=== PATIENT | female | born 1990 | race Two or more races ===

== ENCOUNTER 2024-09-25 19:37 | Emergency (ER) | payer MEDICAID, SELFPAY ==
[2024-09-25 19:48] VITALS: BP 123/82; PULSE 82; RESP 18; TEMP 36.7; O2SAT 98
--- NOTE | 2024-09-25 19:51 | PD.EDRME ---
Rapid Medical Screening Exam RME Arrival date/time: 09/25/24 19:37 34 year old female present to ED for c/o of vag bleeding/clots for 3 days, + I have greeted and performed a focused initial assessment of this patient. A comprehensive ED assessment and evaluation of the patient, analysis of all test results, and completion of the medical decision making process will be conducted by additional ED providers. Chief Complaint: Vaginal Bleeding Time Seen by Provider: 09/25/24 19:46 Vital signs: Vital Signs Temperature 98.1 F 09/25/24 19:48 Pulse Rate 82 09/25/24 19:48 Respiratory Rate 18 09/25/24 19:48 Blood Pressure 123/82 09/25/24 19:48 Pulse Oximetry (%) 98 09/25/24 19:48 Oxygen Delivery Method Room Air 09/25/24 19:48
--- NOTE | 2024-09-25 19:59 | EDNOTE_ITS ---
ED OB Contraction Preg RMI/HPI General Chief complaint: Vaginal Bleeding Stated complaint: miscarage Time Seen by Provider: 09/25/24 19:46 Arrival date/time: 09/25/24 19:37 RME / HPI RME / HPI Narrative: 09/25/24 19:37 34 year old female present to ED for c/o of vag bleeding/clots for 3 days, + I have greeted and performed a focused initial assessment of this patient. A comprehensive ED assessment and evaluation of the patient, analysis of all test results, and completion of the medical decision making process will be conducted by additional ED providers. Dr. Ortiz HPI: 34-year-old female presenting to the emergency department with 3 days history of clot. The patient was seen initially on August 28 and at that time the patient had 6-week IUP . Related Data Home Medications ?Medication ?Instructions ?Recorded ?Confirmed vit no.95-ferrous 1 tab PO DAILY 10/17/2107/20 fumarate 28 mg-folic acid 800 mcg tablet () docusate sodium 100 mg capsule 100 mg PO BID 10/27/21 10/27/21 (Colace) ferrous sulfate 325 mg (65 mg 325 mg PO BID 10/27/21 0 10/27/21 iron) tablet (FeroSul) Previous Rx's ?Medication ?Instructions ?Recorded docusate sodium 100 mg capsule 100 mg PO BID #60 caps 10/28/21 (Colace) ibuprofen 600 mg tablet 600 mg PO Q6H PRN pain #90 t abs 10/28/21 lanolin 50 % topical ointment 1 applic topical TID PRN skin 10/28/21 irritation #15 tubes Allergies Allergy/AdvReac Type Severity Reaction Status Date / Time No Known Allergies Allergy Verified 09/25/24 19:39 Past Medical History Past Medical History NEUROLOGIC: Negative Neurological Disorders or Seizures CARDIAC: Negative Cardiac Disorders or Congestive Heart Failure RESPIRATORY: Positive Asthma; Negative Chronic Obstructive Pulmonary Disease (COPD) GASTROINTESTINAL: Negative Gastrointestinal Disorders GENITOURINARY: Negative Genitourinary Disorders or Renal Disease REPRODUCTIVE: Positive Previous Pregnancies; Negative Endometriosis, Genital Herpes, Gonorrhea, Pelvic Inflammatory Disease, Syphilis or Uterine Prolapse MUSCULOSKELETAL: Negative Musculoskeletal Disorders ENDOCRINE: Negative Endocrine Disorders, Diabetes Mellitus Type 1 or Diabetes Mellitus Type 2 HEMATOLOGIC: Positive Blood Disorders and Anemia OTHER HISTORY: Positive Hospitalization, Blood Transfusions and Chicken Pox; Negative Autoimmune Disease, Falls, Blood Transfusion Reaction, Anesthesia Reactions, Human Immunodeficiency Virus (HIV), Measles, Mumps, Rubella ([place] Measles), Pertussis, Clostridium Difficile or Cancer Family History FAMILY HISTORY: Negative Family Psychiatric Problems, Family Respiratory Disorders, Family Cardiac Disorders, Family Gastrointestinal Problems, Family Cancer, Family Surgery or Family Anesthesia Reaction Surgical History SURGICAL: Positive Gastric Bypass Surgery; Negative Section Social History SMOKING STATUS: Never smoker ED Exam Narrative Physical exam: Ambulated from the ED to room 6. Course Course Course Narrative: 2030: Patient placed in room 6. Quality Measures none Orders Category Date Time Status US OB transvaginal Stat Exams 09/25/24 21:33 Completed ABO/RH Type Stat Lab 09/25/24 20:05 Completed Beta HCG,Quantitative Stat Lab 09/25/24 19:56 Completed CBC Stat Lab 09/25/24 19:56 Completed CMP [Comprehensive Metabolic Panel] Stat Lab 09/25/24 19:56 Completed UA [Urinalysis] Stat Lab 09/25/24 20:21 Completed Vital Signs Vital signs: Vital Signs Temperature 98.1 F 09/25/24 19:48 Pulse Rate 82 09/25/24 19:48 Respiratory Rate 18 09/25/24 19:48 Blood Pressure 123/82 09/25/24 19:48 Pulse Oximetry (%) 98 09/25/24 19:48 Oxygen Delivery Method Room Air 09/25/24 19:48 Vaginal Bleeding Patient data External records reviewed:: [facility] previous records and Other (specify) (Seen on August 28 in the emergency department positive hCG) Clinical information provided by:: patient Social determinants that could affect healthcare access:: none Patient has the following chronic illnesses:: None How is presenting disease/condition affected by chronic disease/condition?: no chronic disease Evaluation data The following diagnostics were reviewed and interpreted by me:: lab results and radiology exam(s) Lab and/or radiology exams considered but not ordered:: None Interpretation Summary: Threatened miscarriage dysfunctional uterine bleeding Medications / Prescriptions Medications or Prescriptions considered but not ordered:: None Medication administrations:: None Consultations Consultation(s) initiated? (list below): No Consultation #1 (Physician, Specialty, Details): None Diagnosis Vaginal Bleeding Differential Diagnosis: missed , threatened , dysfunctional uterine bleeding, menometrorrhagia, incomplete and vaginal bleeding Most likely diagnosis given after review of the tests above:: Threatened miscarriage dysfunctional uterine bleeding Admission Indicated Admission indicated?: not indicated Admission Request Was there a request for admission?: No Disposition Plan Disposition Plan: Discharge Discharge Attestation Discharge Attestation: The patient and all family members were given an opportunity to ask questions and understood the discharge instructions. Discharge instructions specifically effects, indications for sooner follow up or return to the emergency department, and the expected course of current diagnosis. Patient condition: Stable Discharge Plan Plan Patient Disposition: HOME (Self Care) Patient condition on transfer: Stable Prescriptions/Referrals Prescriptions/Med Rec: No Action PNV cmb#95-ferrous fumarate-FA [] 28 mg iron- 800 mcg tablet 1 tab PO DAILY docusate sodium [Colace] 100 mg Capsule 100 mg PO BID ferrous sulfate [FeroSul] 325 mg (65 mg iron) tablet 325 mg PO BID Patient Comments: take 1 tablet by mouth once daily docusate sodium [Colace] 100 mg capsule 100 mg PO BID Qty: 60 0RF ibuprofen 600 mg tablet 600 mg PO Q6H PRN (Reason: pain) Qty: 90 0RF lanolin 50 % ointment 1 applic topical TID PRN (Reason: skin irritation) Qty: 15 0RF Referrals: Gianfranco Noel MD [Primary Care Provider] - 09/29/24 Problem List Clinical Impression: Dysfunctional uterine bleeding, Threatened Patient/Caregiver Discharge Instructions Education Materials: ED Possible Miscarriage ... Additional Instructions: Today your ultrasound shows that you have an intrauterine without heart tone or pole which could indicate an early versus miscarriage. Please take your medications as prescribed. Follow-up with your [facility] appointment on of this week as scheduled. If you cannot get into your [facility] you can return to emergency department for a repeat ultrasound and quant level. Today your quant level is 2100. Return sooner from your appointment if you are having bleeding with passing clots, cramping, or any other concerns. Print Language: Belarusian Stand Alone Forms: Sofi Award Info., Patient Portal Info Letter
[2024-09-25 20:02] LABS: Basophils % (Auto) 0 % (0-2.5); Eosinophils # (Auto) 0.2 Thou/mm3 (0.0-0.5); Eosinophils % (Auto) 3 % (0-10); Hematocrit 34.9 % (36.0-46.0); Hemoglobin 11.6 g/dL (12.0-16.0); Immature Granulocytes % (Auto) 0 % (0-0); Immature Granulocytes Auto 0.02 Thou/mm3 (0.00-0.00); Lymphocytes # (Auto) 3.3 Thou/mm3 (1.0-4.8); Lymphocytes % (Auto) 37 % (10-50); Mean Corpuscular HGB Conc 33.2 g/dl (31.0-37.0); Mean Corpuscular Hemoglobin 26.9 pg (25.0-35.0); Mean Corpuscular Volume 81 fL (80-100); Monocytes # (Auto) 0.8 Thou/mm3 (0.0-0.8); Monocytes % (Auto) 8 % (0-12); Neutrophils # (Auto) 4.7 Thou/mm3 (1.8-7.7); Neutrophils % (Auto) 52 % (37-80); Nucleated Red Blood Cell % 0 /100 WBC (0); Platelet Count 289 Thou/mm3 (140-440); RDW Standard Deviation 42.1 fL (36.4-46.3); Red Blood Count 4.31 Miln/mm3 (4.00-5.20)
[2024-09-25 20:25] LABS: Alanine Aminotransferase 13 U/L (10-49); Albumin, Serum 4.2 gm/dL (3.5-5.0); Albumin/Globulin Ratio 1.6 (1.2-2.2); Alkaline Phosphatase 88 U/L (46-116); Anion Gap 8 (7-16); Aspartate Amino Transferase 15 U/L (0-34); BUN/Creatinine Ratio 13 Ratio (12-20); Bilirubin,Total 0.3 mg/dL (0.3-1.2); Blood Urea Nitrogen 9 mg/dL (9-23); Calcium 9.7 mg/dL (8.3-10.6); Calcium (Corrected) 9.7 mg/dL (8.5-10.1); Carbon Dioxide 26.4 mMol/L (20.0-31.0); Chloride 109 mMol/L (98-107); Creatinine (Component) 0.7 mg/dL (0.6-1.3); Globulin 2.7 gm/dL (2.3-3.5); Glucose 108 mg/dL (74-106); Osmolality,Calculated 284 (275-295); Potassium 3.5 mMol/L (3.4-5.1); Sodium 143 mMol/L (136-145); Total Protein 6.9 gm/dL (5.7-8.2); eGFR > 60 See Note
--- NOTE | 2024-09-25 20:25 | PD.EDRME ---
Rapid Medical Screening Exam RME Arrival date/time: 09/25/24 19:37 09/25/24 19:37 34 year old female present to ED for c/o of vag bleeding/clots for 3 days, + I have greeted and performed a focused initial assessment of this patient. A comprehensive ED assessment and evaluation of the patient, analysis of all test results, and completion of the medical decision making process will be conducted by additional ED providers. Dr. Ortiz HPI: 34-year-old female presenting to the emergency department with 3 days history of clot. The patient was seen initially on August 28 and at that time the patient had 6-week IUP . Patient denying chest pain, shortness of breath, abdominal pain, Chief Complaint: Vaginal Bleeding Time Seen by Provider: 09/25/24 19:46 Vital signs: Vital Signs Temperature 98.1 F 09/25/24 19:48 Pulse Rate 82 09/25/24 19:48 Respiratory Rate 18 09/25/24 19:48 Blood Pressure 123/82 09/25/24 19:48 Pulse Oximetry (%) 98 09/25/24 19:48 Oxygen Delivery Method Room Air 09/25/24 19:48 RME Narrative: 09/25/24 19:37 34 year old female present to ED for c/o of vag bleeding/clots for 3 days, + I have greeted and performed a focused initial assessment of this patient. A comprehensive ED assessment and evaluation of the patient, analysis of all test results, and completion of the medical decision making process will be conducted by additional ED providers. Dr. Ortiz HPI: 34-year-old female presenting to the emergency department with 3 days history of clot. The patient was seen initially on August 28 and at that time the patient had 6-week IUP . Patient denying chest pain, shortness of breath, abdominal pain,
--- NOTE | 2024-09-25 20:29 | PD.EDADULT ---
ED General RME/HPI General Chief complaint: Vaginal Bleeding Stated complaint: miscarage Time Seen by Provider: 09/25/24 19:46 Arrival date/time: 09/25/24 19:37 CC: Vaginal spotting HPI for the last 3 days the patient has had very light vaginal spotting which is increasing heaviness to heavy vaginal spotting today. Also has very mild left low abdominal pain no back pain no right sided cramping. Patient is a G9, P7 at estimated 6 weeks gestation. Currently patient is afebrile nontoxic-appearing not in any acute distress. RME / HPI RME / HPI narrative: 09/25/24 19:37 34 year old female present to ED for c/o of vag bleeding/clots for 3 days, + I have greeted and performed a focused initial assessment of this patient. A comprehensive ED assessment and evaluation of the patient, analysis of all test results, and completion of the medical decision making process will be conducted by additional ED providers. Dr. Ortiz HPI: 34-year-old female presenting to the emergency department with 3 days history of clot. The patient was seen initially on August 28 and at that time the patient had 6-week IUP . Related Data Home Medications ?Medication ?Instructions ?Recorded ?Confirmed vit no.95-ferrous 1 tab PO DAILY 10/17/21 10/27/21 fumarate 28 mg-folic acid 800 mcg tablet () docusate sodium 100 mg capsule 100 mg PO BID 10/27/21 10/27/21 (Colace) ferrous sulfate 325 mg (65 mg 325 mg PO BID 10/27/21 10/27/21 iron) tablet (FeroSul) Previous Rx's ?Medication ?Instructions ?Recorded docusate sodium 100 mg capsule 100 mg PO BID #60 caps 10/28/21 (Colace) ibuprofen 600 mg tablet 600 mg PO Q6H PRN pain #90 tabs 10/28/21 lanolin 50 % topical ointment 1 applic topical TID PRN skin 10/28/21 irritation #15 tubes Allergies Allergy/AdvReac Type Severity Reaction Status Date / Time No Known Allergies Allergy Verified 09/25/24 19:39 Review of Systems Review of Systems Narrative Review of Systems: GEN: No fever, no chills, no weight loss EYES: No discharge, no visual changes, no pain HEENT: No ear pain, no congestion, no sore throat PULM: No shortness of breath, no cough, no congestion CV: No chest pain, no dyspnea on exertion, no palpitations GI: No nausea, no vomiting, no diarrhea, no pain, no constipation : No frequency, no urgency, no dysuria MUSC/SKEL: No joint pain, no back pain SKIN: No rash PSYCH: No hallucinations, no depression HEME/LYMPH: No easy bleeding or bruising tendencies NEURO: No weakness, no headache Past Medical History Past Medical History NEUROLOGIC: Negative Neurological Disorders or Seizures CARDIAC: Negative Cardiac Disorders or Congestive Heart Failure RESPIRATORY: Positive Asthma; Negative Chronic Obstructive Pulmonary Disease (COPD) GASTROINTESTINAL: Negative Gastrointestinal Disorders GENITOURINARY: Negative Genitourinary Disorders or Renal Disease REPRODUCTIVE: Positive Previous Pregnancies; Negative Endometriosis, Genital Herpes, Gonorrhea, Pelvic Inflammatory Disease, Syphilis or Uterine Prolapse MUSCULOSKELETAL: Negative Musculoskeletal Disorders ENDOCRINE: Negative Endocrine Disorders, Diabetes Mellitus Type 1 or Diabetes Mellitus Type 2 HEMATOLOGIC: Positive Blood Disorders and Anemia OTHER HISTORY: Positive Hospitalization, Blood Transfusions and Chicken Pox; Negative Autoimmune Disease, Falls, Blood Transfusion Reaction, Anesthesia Reactions, Human Immunodeficiency Virus (HIV), Measles, Mumps, Rubella ([place] Measles), Pertussis, Clostridium Difficile or Cancer Family History FAMILY HISTORY: Negative Family Psychiatric Problems, Family Respiratory Disorders, Family Cardiac Disorders, Family Gastrointestinal Problems, Family Cancer, Family Surgery or Family Anesthesia Reaction Surgical History SURGICAL: Positive Gastric Bypass Surgery; Negative Section Social History SMOKING STATUS: Never smoker ED Exam Narrative Physical exam: [General: Obese not in any acute distress Head normocephalic HEENT: Within acceptable limits Neck is supple nontender Chest equal chest rise nontender to palpation Respiratory: Clear to auscultation no wheezes crackles or rubs CV: Rate rhythm is regular no murmurs rubs or clicks Abdomen is distended secondary to body habitus soft nontender no masses positive bowel sounds all 4 quadrants Back: No CVA tenderness no spinous process tenderness from cervical spine thoracic and lumbar spine Skin: Intact no petechiae rash induration ulceration or crepitus Extremities: Moving all extremity against resistance cap refill less than 2 seconds neurosensory intact Neuro: Awake alert oriented x3 Glascow coma 15 no focal deficits] Course Course Course Narrative: 2030: Patient placed in room 6. Quality Measures none Orders Category Date Time Status US OB transvaginal Stat Exams 09/25/24 21:33 Completed ABO/RH Type Stat Lab 09/25/24 20:05 Completed Beta HCG,Quantitative Stat Lab 09/25/24 19:56 Completed CBC Stat Lab 09/25/24 19:56 Completed CMP [Comprehensive Metabolic Panel] Stat Lab 09/25/24 19:56 Completed UA [Urinalysis] Stat Lab 09/25/24 20:21 Completed Vital Signs Vital signs: Vital Signs Temperature 98.1 F 09/25/24 19:48 Pulse Rate 82 09/25/24 19:48 Respiratory Rate 18 09/25/24 19:48 Blood Pressure 123/82 09/25/24 19:48 Pulse Oximetry (%) 98 09/25/24 19:48 Oxygen Delivery Method Room Air 09/25/24 19:48 [facility] Patient data External records reviewed:: [facility] previous records Clinical information provided by:: patient Social determinants that could affect healthcare access:: none Patient has the following chronic illnesses:: None How is presenting disease/condition affected by chronic disease/condition?: uneffected by Evaluation data The following diagnostics were reviewed and interpreted by me:: lab results and radiology exam(s) Lab and/or radiology exams considered but not ordered:: CBC shows no leukocytosis mild anemia of 11.6 and 34.9 on hemoglobin and hematocrits respectively. No thrombocytopenia CMP shows no significant electrolyte imbalances no renal impairment no transaminitis or T. bili elevation. Interpretation Summary: Quantitative hCG 2185 Medications Medications considered but not ordered:: None Medication administrations:: None Consultations Consultation(s) initiated? (list below): No Diagnosis Differential Diagnosis ED Complaint MDM: SAB IUP multiple gestations Most likely diagnosis given after review of the tests above:: Threatened Admission Indicated Admission indicated?: not indicated Explain why admission is indicated or not indicated:: Stable for discharge Admission Request Was there a request for admission?: No Disposition Plan Disposition Plan: Discharge Discharge Attestation Discharge Attestation: The patient and all family members were given an opportunity to ask questions and understood the discharge instructions. Discharge instructions specifically effects, indications for sooner follow up or return to the emergency department, and the expected course of current diagnosis. Patient condition: Stable Medical Decision Making Differential Diagnosis Differential Diagnosis: SAB IUP multiple gestations Lab Data 09/25/24 19:56 09/25/24 19:56 Labs: Lab Results 09/25/24 09/25/24 09/25/24 Range/Units 19:56 20:05 20:21 WBC 9.0 (3.6-11.0) Thou/mm3 RBC 4.31 (4.00-5.20) Miln/mm3 Hgb 11.6 L (12.0-16.0) g/dL Hct 34.9 L (36.0-46.0) % MCV 81 (80-100) fL MCH 26.9 (25.0-35.0) pg MCHC 33.2 (31.0-37.0) g/dl RDW Std Deviation 42.1 (36.4-46.3) fL Plt Count 289 (140-440) Thou/mm3 Neut % (Auto) 52 (37-80) % Lymph % (Auto) 37 (10-50) % [place] % (Auto) 8 (0-12) % Eos % (Auto) 3 (0-10) % Baso % (Auto) 0 (0-2.5) % Neut # (Auto) 4.7 (1.8-7.7) Thou/mm3 Lymph # (Auto) 3.3 (1.0-4.8) Thou/mm3 [place] # (Auto) 0.8 (0.0-0.8) Thou/mm3 Eos # (Auto) 0.2 (0.0-0.5) Thou/mm3 Baso # (Auto) 0.0 (0.0-0.2) Thou/mm3 Immature Gran # (Auto) 0.02 H (0.00-0.00) Thou/mm3 Absolute Nucleated RBC 0.00 (0.00-0.00) Thou/mm3 Immature Gran % 0 (0-0) % Nucleated RBC % 0 (0) /100 WBC Sodium 143 (136-145) mMol/L Potassium 3.5 (3.4-5.1) mMol/L Chloride 109 H (98-107) mMol/L Carbon Dioxide 26.4 (20.0-31.0) mMol/L Anion Gap 8 (7-16) BUN 9 (9-23) mg/dL Creatinine 0.7 (0.6-1.3) mg/dL Estim Creat Clear Calc Not Performed. eGFR > 60 (60 - ) See Note BUN/Creatinine Ratio 13 (12-20) Ratio Glucose 108 H (74-106) mg/dL Calculated Osmolality 284 (275-295) Calcium 9.7 (8.3-10.6) mg/dL Corrected Calcium 9.7 (8.5-10.1) mg/dL Total Bilirubin 0.3 (0.3-1.2) mg/dL AST 15 (0-34) U/L ALT 13 (10-49) U/L Alkaline Phosphatase 88 (46-116) U/L Total Protein 6.9 (5.7-8.2) gm/dL Albumin 4.2 (3.5-5.0) gm/dL Globulin 2.7 (2.3-3.5) gm/dL Albumin/Globulin Ratio 1.6 (1.2-2.2) Beta HCG, Quant 2186 (<5.0) mIU/mL Ur Collection Type Voided Urine Color Yellow (Lt Yel-Yel) Urine Clarity Turbid A (Clear/Hazy) Urine pH 6.0 (5.0-7.0) Ur Specific Brandon 1.017 (1.001-1.035) Urine Protein 1+ A (Neg - Trace) Urine Glucose (UA) Negative (Negative) Urine Ketones Negative (Negative) Urine Blood 3+ A (Negative) Urine Nitrite Negative (Negative) Urine Bilirubin Negative (Negative) Urine Urobilinogen (Auto) Negative (0.0-1.0) mg/dL Ur Leukocyte Esterase Positive (Negative) Urine RBC 2598 H (0-3) /hpf Urine WBC 79 H (0-5) /hpf Ur Squamous Epith Cells 7 H (0-5) /hpf Urine Bacteria None (None) Hyaline Casts < 1 (0-1) /hpf Blood Type A Positive Blood Bank Wristband ID Yes Discharge Plan Plan Patient Disposition: HOME (Self Care) Patient condition on transfer: Stable Prescriptions/Referrals Prescriptions/Med Rec: No Action PNV cmb#95-ferrous fumarate-FA [] 28 mg iron- 800 mcg tablet 1 tab PO DAILY docusate sodium [Colace] 100 mg Capsule 100 mg PO BID ferrous sulfate [FeroSul] 325 mg (65 mg iron) tablet 325 mg PO BID Patient Comments: take 1 tablet by mouth once daily docusate sodium [Colace] 100 mg capsule 100 mg PO BID Qty: 60 0RF ibuprofen 600 mg tablet 600 mg PO Q6H PRN (Reason: pain) Qty: 90 0RF lanolin 50 % ointment 1 applic topical TID PRN (Reason: skin irritation) Qty: 15 0RF Referrals: Gianfranco Noel MD [Primary Care Provider] - 09/29/24 Problem List Clinical Impression: Dysfunctional uterine bleeding, Threatened Patient/Caregiver Discharge Instructions Education Materials: ED Possible Miscarriage ... Additional Instructions: Today your ultrasound shows that you have an intrauterine without heart tone or pole which could indicate an early versus miscarriage. Please take your medications as prescribed. Follow-up with your [facility] appointment on of this week as scheduled. If you cannot get into your [facility] you can return to emergency department for a repeat ultrasound and quant level. Today your quant level is 2100. Return sooner from your appointment if you are having bleeding with passing clots, cramping, or any other concerns. Print Language: Sri Lankan Stand Alone Forms: Sofi Award Info., Patient Portal Info Letter
[2024-09-25 20:30] LABS: Collection Type, Urine Voided
[2024-09-25 20:38] LABS: Bilirubin,Urine Negative (Negative); Blood,Urine 3+ (Negative); Clarity,Urine Turbid (Clear/Hazy); Glucose, Urine Negative (Negative); Hyaline Casts,Urine < 1 /hpf (0-1); Ketones,Urine Negative (Negative); Leukocyte Esterase,Urine Positive (Negative); Nitrite,Urine Negative (Negative); Protein,Urine 1+ (Neg - Trace); RBC,Urine 2598 /hpf (0-3); Specific Gravity,Urine 1.017 (1.001-1.035); Squamous Epithelial Cell,Urine 7 /hpf (0-5); Urobilinogen,Urine Negative mg/dL (0.0-1.0); WBC,Urine 79 /hpf (0-5)
[2024-09-25 20:39] LABS: Color,Urine Yellow (Lt Yel-Yel)
[2024-09-25 20:44] LABS: Beta HCG,Quantitative 2186 mIU/mL (<5.0)
--- NOTE | 2024-09-25 21:16 | PC.NURSE ---
ultrasound at bedside
--- NOTE | 2024-09-25 21:33 | XR_ITS ---
Examination: OB Transvaginal ultrasound of the pelvis, complete Technique: Transvaginal sonographic images pelvis performed using reaves scale imaging Exam date and time: September 25, 2024 2149 hours INDICATIONS: Vaginal bleeding and pelvic cramping today FINDINGS: Uterus 8.7 cm with intrauterine gestational sac 0.9 cm corresponding to 5 weeks 5 days gestational age. No pole, no cardiac activity Right ovary 2.9 cm arterial flow small follicles Left ovary obscured by bowel gas IMPRESSION: Empty intrauterine gestational sac corresponding to 5 weeks 5 days gestational age No pole, no cardiac activity, recommend short term follow-up transvaginal study to confirm viability.
--- NOTE | 2024-09-25 23:35 | PD.EDADDENDU ---
Emergency Room Addendum Addendum Narrative: 2299 Care assumed from Ron Espitia NP. Past medical, surgical, social and family history reviewed. Vitals and home medications reviewed. Results and treatment plan discussed. I will assume the care of the patient at this time and will follow the patient, pending final disposition. 2309 34-year-old female presenting to the emergency department with 3 days history of clot. The patient was seen initially on August 28 and at that time the patient had 6-week IUP . 2329 Patient re-evaluated prior to discharge. She was resting comfortably in no acute distress. Vital signs remained stable throughout the ED stay. Abdominal exam revealed a soft, non-tender abdomen. No signs of acute pathology at this time. Patient reports a scheduled [facility] follow-up appointment on . Discharge instructions reviewed, return precautions provided, and patient discharged in stable condition. MD Attestation MD Attestation Scribe Attestation: I, Rivera Woodall, am scribing for and in the presence of Dr. Mcgrath. Provider Notation: Although this document has been carefully reviewed, there may still be some phonetic and other typographical errors. These errors are purely grammatical due to imperfections in the software program and should not be construed in any way to compromise the substance of the patient's medical care during this visit.
[2024-09-25 23:40] VITALS: BP 103/61; PULSE 65; RESP 18; O2SAT 98
== END 2024-09-25 23:41 | disposition home or self-care (01) ==
PROVIDERS: Physician Assistant; Emergency Provider Emergency Medicine; PCP Obstetrics & Gynecology
DX: O20.0 Threatened abortion (principal); Z3A.01 Less than 8 weeks gestation of pregnancy
CPT/HCPCS: 36415; 76817; 80053; 81001; 84702; 85025; 86900; 86901; 99284

== ENCOUNTER 2025-05-23 09:06 | Outpatient (AMB) | payer MEDICAID, SELFPAY ==
[2025-05-23 09:24] VITALS: BP 127/82; PULSE 77; RESP 18; TEMP 36.2; O2SAT 98; BMI 38.0
--- NOTE | 2025-05-23 09:24 | OBCLNT_ITS ---
Vital Signs 05/23/25 09:24 Height 1.6 m Height Method Stated Weight 97.239 kg Weight Measurement Method Standing Scale BMI 38.0 BP 127/82 Blood Pressure Source Automatic Cuff Blood Pressure Location Left Upper Arm Position Sitting Respiration 18 Pulse 77 Pulse Source Monitor Temp 97.2 F Temp Source Oral Pulse Oximetry (%) 98 Oxygen Delivery Method Room Air Allergies/Home Meds Allergies & Medications Allergies No Known Allergies Allergy (Verified 05/23/25 09:25) Medication Reconciliation vit no.95-ferrous fumarate 28 mg-folic acid 800 mcg tablet () 1 tab PO DAILY 10/17/21 [History Confirmed 05/23/25] docusate sodium 100 mg capsule (Colace) 100 mg PO BID 10/27/21 [History Confirmed 05/23/25] ferrous sulfate 325 mg (65 mg iron) tablet (FeroSul) 325 mg PO BID 10/27/21 [History Confirmed 05/23/25] docusate sodium 100 mg capsule (Colace) 100 mg PO BID #60 caps 10/28/21 [Rx Confirmed 05/23/25] ibuprofen 600 mg tablet 600 mg PO Q6H PRN pain #90 tabs 10/28/21 [Rx Confirmed 05/23/25] lanolin 50 % topical ointment 1 applic topical TID PRN skin irritation #15 tubes 10/28/21 [Rx Confirmed 05/23/25] Intake Visit Data Collection New Patient or Established: Established Patient (seen at [facility] within 3 years) Reason for Visit:: OB TRANSFER Seen by Clinical Staff ONLY (RN/MA): No Horser Up Required: No Do You Feel Safe at Home: Yes Authorities Contacted: N/A PCP or OBGYN visit in last 3 months: Yes Date of Last PCP or OBGYN visit: 09/25/24 Hx Now: Yes Are you currently on any form of Control: No Last menstrual period: 09/27/24 Pain Present Currently: No Pain Scale Used: Hogan-Warren/Numerical Pain scale:: 0 Smoking Status Smoking Status: Never smoker Immunizations Flu Vaccine in the Last 12 Months: No Flu Vaccine Exclusion Criteria: No Exclusion Criteria Questionnaires Covid-19 Vaccine Questionnaire Has patient been vacinated for Covid-19 Have you been vacinated for Covid-19: Yes PHQ-9 PHQ-2 Over the last 2 weeks, how often have you been bothered by any of the following problems? 1. Little interest or pleasure in doing things: not at all 2. Feeling down, depressed, or hopeless: not at all Total score: 0 PHQ-9 3. Trouble falling or staying asleep, or sleeping too much: Not at all 4. Feeling tired or having little energy: Not at all 5. Poor appetite or overeating: Not at all 6. Feeling bad about yourself - or that you are a failure or have let yourself or your family down: Not at all 7. Trouble concentrating on things, such as reading the newspaper or watching television: Not at all 8. Moving or speaking so slowly that other people could have noticed? - Or the opposite - being so fidgety or restless that you have been moving around a lot more than usual: not at all 9. Thoughts that you would be better off or of hurting yourself in some way: Not at all Total score: 0 If you checked off any problems, how difficult have these problems made it for you to do your work, take care of things at home, or get along with other people?: not difficult at all Source: Developed by Drs. Hugo Lorenzo, Melba Leal, Percy Jean Baptiste and colleagues, with an educational rl from [employer]. Depression screen completed yes Social History Living Situation History Marital Status: Single Lives With: Family Housing: House Tobacco History Smoking Status: Never smoker Second Hand Smoke Exposure: No Alcohol History Alcohol Intake: Never Domestic Abuse History Do You Feel Safe at Home: Yes History of Present Illness HPI Narrative 35-year-old 10 para 7 living 7 for OBI. Transfer of care from [facility]. Patient's last. September 27, 2024. Her estimated due date was July 04, 2025. Patient had her first ultrasound January 19, 2025. And that confirmed due date of July 03, 2025. Patient was 16 weeks 3 days on that day she wants to have a tubal ligation. She has a history retained placenta and hemorrhage with her last . Denies social habits. And denies surgeries. She has a history of anemia. Initial current was 36.4. And a hemoglobin of 11. Patient is A+, antibody screen negative, RPR nonreactive, rubella nonimmune, hepatitis B-, HIV negative and hep C was negative. GC and Chlamydia were negative. Her AFP and carrier screens all negative. Patient had a 1 hour GTT that was abnormal. However her 3-hour was normal. Repeat RPR was negative and her A1c 4.7 patient had a history of gastric bypass in 2019. Reports movement. Denies leaking, bleeding, contractions patient has a copy of her tubal consent and there is also consent in the chart. 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 [facility]. She has records. Sono's are not in the chart. Her first ultrasound was at 16 weeks January 19, 2025. And this confirmed due date of July 04, 2025 by her LMP of September 27, 2024. Patient has a history of anemia. And she had gastric bypass in 2019. Previous history of hemorrhage with her last . Schedule ultrasound with maternal- medicine for anatomy scan and growth. Continue prenatals. Discussed labor precautions and kick count. And we discussed diet and weight gain and return in 2 weeks for GBS. Patient is for tubal ligation. She has a consent and is a consent in her records Menstrual History Menstrual reliability: definite Flow: normal Menstrual regularity: regular Monthly: Yes Age at menarche: 10 On control pills at conception: No OB History : 10 Para: 7 Hx Total # of Abortions (Spontaneous & Elective): 2 # of Living Children: 7 Delivery History 1st : Child's name: NA date: 09/12/08 sex: male Delivery type: vaginal Delivery complications: PRECLAMPISIA History of depression before or after : No 2nd : Child's name: NA date: 05/29/10 sex: female Delivery type: vaginal Delivery complications: FRACTURED BABIES CLAVICLE History of depression before or after : No 3rd : Child's name: NA date: 02/24/14 sex: female Delivery type: vaginal weight (lbs): 3628.739 g History of depression before or after : No 4th : Child's name: NA date: 02/07/17 sex: male Delivery type: vaginal weight (lbs): 4082.331 g Delivery complications: RETAINED PLACENTA/COLAPSE UTERUS History of depression before or after : No 5th : Child's name: NA date: 05/02/20 sex: male Delivery type: vaginal weight (lbs): 3175.147 g History of depression before or after : No 6th : Child's name: NA date: 10/28/21 sex: male Delivery type: vaginal weight (lbs): 3628.739 g History of depression before or after : No 7th : Child's name: NA date: 04/22/24 sex: male Delivery type: vaginal weight (lbs): 2721.554 g History of depression before or after : No Infection History & Risk Evaluation History of STDs: none HIV risk evaluation: low risk Hepatitis B risk evaluation: low risk Patient or partner has history of Genital Herpes: No Varicella/chicken pox status: immunized Genetic Screening & History Genetic Screening/Teratology Counseling - Includes patient, baby's father, or an yone in either family with: 1. Patient's age 35 years or older as of estimated date of delivery: Yes 2. Thalassemia (Surinamese, Cypriot, Mediterranean, or Background); MCV less than 80: No 3. Neural Tube Defect (Meningomyelocele, Spina Bifida, or Anencephaly): No 4. Congenital Heart Defect: No 5. Down Syndrome: No 6. Abdullahi-Sachs (Ashkenazi Quaker, Cajun, Prydeinig Stites): No 7. Joseph Disease (Ashkenazi Quaker): No 8. Familial Dysautonomia (Ashkenazi Quaker): No 9. Sickle Cell Disease or Trait (): No 10. Hemophilia or other blood disorders: No 11. Muscular Dystrophy: No 12. Cystic Fibrosis: No 13. Kossuth's Chorea: No 14. Mental Retardation/Autism: No 15. Other inherited genetic or chromosomal disorder: No 16. Maternal Metabolic Disorder (EG,TYPE 1 Diabetes, PKU): No 17. Patient or baby's father had a child with defects not listed above: No 18. Recurrent loss or a stillbirth: No 19. Medications (including supplements, vitamins, herbs or otc drugs)/illicit/recreational drugs/alcohol since last menstrual period: No 20. Any other: No Infection History 1. Live with someone with TB or exposed to TB: No 2. Rash or viral illness since last menstrual period: No 3. Hepatitis B,C: No Other (see comments) Source: [employer] Review of Systems Review of Systems Systems Reviewed: All systems reviewed, normal except as documented Exam General Limitations: no limitations General Appearance: alert, in no apparent distress, comfortable, cooperative, healthy appearing, well developed and well groomed Chest Chest inspection: Present normal inspection and symmetric chest wall rise Resp Respiratory exam: Present normal lung sounds bilaterally Card Cardiovascular exam: Present regular rate, normal rhythm and normal heart sounds Abdominal Abdominal exam: Present soft and normal bowel sounds Psych Psychiatric exam: Present normal affect and normal mood Office Procedures OBC Clinic LOC & Office Proc's Nursing/Assessment Patient Status: Established Patient OB Clinic Nursing Assessment: Medication Reconciliation, Update PMH in EMR and Vital Signs OB Clinic Coordination of Care: Consent,records obtained, informed consent, Education Simp Pt/Fam, Lab and Imaging orders, Results/Orders obtained and Staff clarify orders Special Needs: Heart tones Established Patient Charge Established Patient Point Assignment: 110 Established Patient Point Charge: EP Level 3 (80-115) Assessment & Plan Diagnosis / Problem List (1) Encounter for supervision of high risk in third trimester, antepartum: Status: Acute (2) Advanced maternal age (AMA) in : Status: Acute (3) Obese: Status: Acute Qualifiers: Obesity type: due to excess calories Plan Discussed continued diet and weight gain. Continue vitamins and iron. Discussed labor precautions. Kick count twice a day. Refer to maternal- medicine for stat growth sono. GBS next visit. Reviewed labs return in 2 weeks OB check Additional Plan Follow Up: 2 Weeks (OBC)
== END 2025-05-23 10:11 | disposition home or self-care (01) ==
LOC: HODSOBC 09:06
PROVIDERS: PCP Obstetrics & Gynecology; Referring Provider Obstetrics & Gynecology; Supervising Provider Advanced Practice Midwife; Visit Provider Advanced Practice Midwife
DX: O09.523 Supervision of elderly multigravida, third trimester (principal); O09.893 Supervision of other high risk pregnancies, third trimester; O99.213 Obesity complicating pregnancy, third trimester; O99.843 Bariatric surgery status complicating pregnancy, third trimester; O09.43 Supervision of pregnancy with grand multiparity, third trimester; Z3A.34 34 weeks gestation of pregnancy; Z87.59 Personal history of other complications of pregnancy, childbirth and the puerperium
CPT/HCPCS: 99213; G0463

== ENCOUNTER 2025-06-01 12:56 | Outpatient (AMB) | payer MEDICAID, SELFPAY ==
--- NOTE | 2025-06-01 13:02 | OBCLNT_ITS ---
Vital Signs 06/01/25 13:22 Height 1.6 m Height Method Stated Weight 97.182 kg Weight Measurement Method Standing Scale BMI 37.9 BP 114/75 Blood Pressure Source Automatic Cuff Blood Pressure Location Left Upper Arm Position Sitting Respiration 14 Pulse 75 Pulse Source Monitor Temp 98.1 F Temp Source Oral Pulse Oximetry (%) 97 Oxygen Delivery Method Room Air Allergies/Home Meds Allergies & Medications Allergies No Known Allergies Allergy (Verified 06/01/25 13:23) Medication Reconciliation vit no.95-ferrous fumarate 28 mg-folic acid 800 mcg tablet () 1 tab PO DAILY 10/17/21 [History Confirmed 06/01/25] ferrous sulfate 325 mg (65 mg iron) tablet (FeroSul) 325 mg PO BID 10/27/21 [History Confirmed 06/01/25] Immunizations Immunizations Flu Vaccine in the Last 12 Months: Yes Date of most recent flu vaccination: 06/01/25 Flu Vaccine Exclusion Criteria: Already Received Care OB Visit Log OB Flowsheet Initial Weight: Not Recorded Date -?-?-?-?-?-?-?-?-?-?-?-?- EGA Weight BP Alb Glu CTX Pres Fundal ht FHR Mov Dilation Station Effacement Hx Notes Visit Note 05/23/25 -?--?-?-?-?-?-?-?-?-?-?-?- 34w 0d 97.239 kg 127/82 absent cephalic 34 145 active 35-year-old 10 para 7 for OBI. Transfer of care from [facility]. She has records. Sono's are not in the chart. Her first ultrasound was at 16 weeks January 19, 2025. And this confirmed due date of July 04, 2025 by her LMP of September 27, 2024. Patient has a history of anemia. And she had gastric bypass in 2019. Previous history of hemorrhage with her last . Schedule ultrasound with maternal- medicine for anatomy scan and growth. Continue prenatals. Discussed labor precautions and kick count. And we discussed diet and weight gain and return in 2 weeks for GBS. Patient is for tubal ligation. She has a consent and is a consent in her records 06/01/25 -?-?-?-?-?-?-?-?-?-?-?-?- 35w 2d 97.182 kg 114/75 absent cephalic 35 147 active Reports good movement. Denies leaking, bleeding, contractions. No OB complaints GBS next visit. Kick count twice a day. Reviewed danger signs symptoms labor precautions return in a week OB check RICHY Calculator Estimated Delivery Date Method Current WG Current Estimate 07/04/25 LMP (Uncertain) 35w 2d Other Estimates 07/04/25 Ultrasound #1 35w 2d 07/08/25 Ultrasound #2 34w 5d 07/04/25 Manual 35w 2d final richy: , efw: 37% Notes Visit Date: 05/23/25 Last Updated by: Ashely Mueller CNM For BTL, OB: 1hr gTT: 156, 3 hr gtt wnl, hct?31, A+, abs- ,rpr;;nr, rub NI, HBSAG-,HIV-,HC-, GC/CT-A!: 4.7 Office Procedures OBC Clinic LOC & Office Proc's Nursing/Assessment Patient Status: Established Patient OB Clinic Nursing Assessment: Medication Reconciliation, Update PMH in EMR and Vital Signs OB Clinic Coordination of Care: AMA, Complex Care and Chronic Disease 1-5, Consent,records obtained, informed consent, Education Simp Pt/Fam, Lab and Imaging orders, Results/Orders obtained and Staff clarify orders Special Needs: Heart tones Established Patient Charge Established Patient Point Assignment: 155 Established Patient Point Charge: EP Level 4 (120-155) Injection/Vaccine Admin SQ Im Injection: Yes Immunizations flu vac ts (6mos up)-PF 45 mcg(15mcg x3)/0.5 mL IM syringe Performing Provider: Ashely Mueller CNM Performing Location: [facility] Administered by: Zoie Velasco MA on 06/01/25 14:13 Dose Route Admin Location Dispensed Lot Number Expiration Date Pack age [facility] 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 GBS next visit. Return in 2 weeks. Kick count and OB precautions given Additional Plan Follow Up: 1 Week (obc)
[2025-06-01 13:22] VITALS: BP 114/75; PULSE 75; RESP 14; TEMP 36.7; O2SAT 97; BMI 37.9
== END 2025-06-01 13:36 | disposition home or self-care (01) ==
PROVIDERS: Supervising Provider Advanced Practice Midwife; Visit Provider Advanced Practice Midwife
DX: O09.523 Supervision of elderly multigravida, third trimester (principal); O09.43 Supervision of pregnancy with grand multiparity, third trimester; Z3A.35 35 weeks gestation of pregnancy; Z23 Encounter for immunization
CPT/HCPCS: 90471; 90686; 96372; 99213; 99214; G0463; J9060

== ENCOUNTER 2025-06-09 10:25 | Outpatient (AMB) | payer MEDICAID, SELFPAY ==
[2025-06-09 10:28] VITALS: BP 115/75; PULSE 90; RESP 18; TEMP 36.5; O2SAT 96; BMI 38.3
--- NOTE | 2025-06-09 10:28 | OBCLNT_ITS ---
Vital Signs 06/09/25 10:28 Height 1.6 m Height Method Stated Weight 98.146 kg Weight Measurement Method Standing Scale BMI 38.3 BP 115/75 Blood Pressure Source Automatic Cuff Blood Pressure Location Left Upper Arm Position Sitting Respiration 18 Pulse 90 Pulse Source Monitor Temp 97.7 F Temp Source Oral Pulse Oximetry (%) 96 Oxygen Delivery Method Room Air Allergies/Home Meds Allergies & Medications Allergies No Known Allergies Allergy (Verified 06/09/25 10:36) Medication Reconciliation vit no.95-ferrous fumarate 28 mg-folic acid 800 mcg tablet () 1 tab PO DAILY 10/17/21 [History Confirmed 06/09/25] ferrous sulfate 325 mg (65 mg iron) tablet (FeroSul) 325 mg PO BID 10/27/21 [History Confirmed 06/09/25] Immunizations Immunizations Flu Vaccine in the Last 12 Months: Yes Flu Vaccine Exclusion Criteria: Already Received Care OB Visit Log OB Flowsheet Initial Weight: Not Recorded Date -?-?-?-?-?-?-?-?-?-?-?-?- EGA Weight BP Alb Glu CTX Pres Fundal ht FHR Mov Dilation Station Effacement Hx Notes Visit Note 05/23/25 -?-?-?-?-?-?-?-?-?-?-?-?- 34w 0d 97.239 kg 127/82 absent cephalic 34 145 active 35-year-old 10 para 7 for OBI. Transfer of care from [facility]. She has records. Sono's are not in the chart. Her first ultrasound was at 16 weeks January 19, 2025. And this confirmed due date of July 04, 2025 by her LMP of September 27, 2024. Patient has a history of anemia. And she had gastric bypass in 2019. Previous history of hemorrhage with her last . Schedule ultrasound with maternal- medicine for anatomy scan and growth. Continue prenatals. Discussed labor precautions and kick count. And we discussed diet and weight gain and return in 2 weeks for GBS. Patient is for tubal ligation. She has a consent and is a consent in her records 06/01/25 -?-?-?-?-?-?-?-?-?-?-?-?- 35w 2d 97.182 kg 114/75 absent cephalic 35 147 active Reports good movement. Denies leaking, bleeding, contractions. No OB complaints GBS next visit. Kick count twice a day. Reviewed danger signs symptoms labor precautions return in a week OB check 06/09/25 -?-?-?-?-?-?-?-?-?-?-?-?- 36w 3d 98.146 kg 115/75 absent cephalic 36 145 active Reports good movement. Denies leaking, bleeding, contractions GBS GBS today. Discussed labor precautions. Kick count twice a day. Discussed danger signs symptoms ER precautions, and return in a week OB check RICHY Calculator Estimated Delivery Date Method Current WG Current Estimate 07/04/25 LMP (Uncertain) 36w 3d Other Estimates 07/04/25 Ultrasound #1 36w 3d 07/08/25 Ultrasound #2 35w 6d 07/04/25 Manual 36w 3d final richy: , efw: 37% Notes Visit Date: 06/09/25 Last Updated by: Ashely Mueller CNM sono: 06/07/25: 36w1, EFW: 59% Visit Date: 05/23/25 Last Updated by: Ashely Mueller CNM For BTL, OB: 1hr gTT: 156, 3 hr gtt wnl, hct?31, A+, abs- ,rpr;;nr, rub NI, HBSAG-,HIV-,HC-, GC/CT-A!: 4.7 Office Procedures OBC Clinic LOC & Office Proc's Nursing/Assessment Patient Status: Established Patient OB Clinic Nursing Assessment: Medication Reconciliation, Update PMH in EMR and Vital Signs OB Clinic Coordination of Care: AMA, Complex Care and Chronic Disease 1-5, Consent,records obtained, informed consent, Education Simp Pt/Fam, 1 Ins Authorization, Lab and Imaging orders, Results/Orders obtained and Staff clarify orders Special Needs: Heart tones Miscellaneous Interventions: Culture Specimen Collection Established Patient Charge Established Patient Point Assignment: 185 Established Patient Point Charge: EP Level 5 (160-above) Assessment & Plan Diagnosis / Problem List (1) Obese: Status: Acute Qualifiers: Obesity type: due to excess calories (2) Advanced maternal age (AMA) in : Status: Acute (3) Encounter for supervision of high risk in third trimester, antepartum: Status: Acute Plan GBS today. Discussed labor precautions. Kick count twice a day. Discussed ER precautions. Return in a week OB check Additional Plan Follow Up: 1 Week (obc)
== END 2025-06-09 10:51 | disposition home or self-care (01) ==
PROVIDERS: Supervising Provider Advanced Practice Midwife; Visit Provider Advanced Practice Midwife
DX: O09.893 Supervision of other high risk pregnancies, third trimester (principal); O99.213 Obesity complicating pregnancy, third trimester; O09.523 Supervision of elderly multigravida, third trimester; O09.43 Supervision of pregnancy with grand multiparity, third trimester; Z3A.36 36 weeks gestation of pregnancy
CPT/HCPCS: 99215; G0463

== ENCOUNTER 2025-06-15 08:58 | Outpatient (AMB) | payer MEDICAID, SELFPAY ==
[2025-06-15 09:14] VITALS: BP 111/62; PULSE 76; RESP 18; TEMP 36.7; O2SAT 97; BMI 38.6
--- NOTE | 2025-06-15 09:14 | AMB.OBPNC ---
Vital Signs 06/15/25 09:14 Height 1.6 m Height Method Stated Weight 98.883 kg Weight Measurement Method Standing Scale BMI 38.6 BP 111/62 Blood Pressure Source Automatic Cuff Blood Pressure Location Right Upper Arm Position Sitting Respiration 18 Pulse 76 Pulse Source Monitor Temp 98.0 F Temp Source Temporal Artery Scan Pulse Oximetry (%) 97 Oxygen Delivery Method Room Air Allergies/Home Meds Allergies & Medications Allergies No Known Allergies Allergy (Verified 06/15/25 09:15) Medication Reconciliation vit no.95-ferrous fumarate 28 mg-folic acid 800 mcg tablet () 1 tab PO DAILY 10/17/21 [History Confirmed 06/15/25] ferrous sulfate 325 mg (65 mg iron) tablet (FeroSul) 325 mg PO BID 10/27/21 [History Confirmed 06/15/25] Immunizations Immunizations Flu Vaccine in the Last 12 Months: Yes Flu Vaccine Exclusion Criteria: Already Received Care OB Visit Log OB Flowsheet Initial Weight: Not Recorded Date <del>?</del> EGA Weight BP Alb Glu CTX Pres Fundal ht FHR Mov Dilation Station Effacement Hx Notes Visit Note 05/23/25 <del>?</del> 34w 0d 97.239 kg 127/82 absent cephalic 34 145 active 35-year-old 10 para 7 for OBI. Transfer of care from [facility]. She has records. Sono's are not in the chart. Her first ultrasound was at 16 weeks January 19, 2025. And this confirmed due date of July 04, 2025 by her LMP of September 27, 2024. Patient has a history of anemia. And she had gastric bypass in 2019. Previous history of hemorrhage with her last . Schedule ultrasound with maternal- medicine for anatomy scan and growth. Continue prenatals. Discussed labor precautions and kick count. And we discussed diet and weight gain and return in 2 weeks for GBS. Patient is for tubal ligation. She has a consent and is a consent in her records 06/01/25 <del>?</del> 35w 2d 97.182 kg 114/75 absent cephalic 35 147 active Reports good movement. Denies leaking, bleeding, contractions. No OB complaints GBS next visit. Kick count twice a day. Reviewed danger signs symptoms labor precautions return in a week OB check 06/09/25 <del>?</del> 36w 3d 98.146 kg 115/75 absent cephalic 36 145 active Reports good movement. Denies leaking, bleeding, contractions GBS GBS today. Discussed labor precautions. Kick count twice a day. Discussed danger signs symptoms ER precautions, and return in a week OB check 06/15/25 <del>?</del> 37w 2d 98.883 kg 111/62 absent cephalic 37 145 active Reports good movement. Denies leaking, bleeding, contractions. Increased discomfort Discussed GBS result. Discussed kick count twice a day. Labor precautions reviewed and danger signs symptoms return a week OB check RICHY Calculator Estimated Delivery Date Method Current WG Current Estimate 07/04/25 LMP (Uncertain) 37w 2d Other Estimates 07/04/25 Ultrasound #1 37w 2d 07/08/25 Ultrasound #2 36w 5d 07/04/25 Manual 37w 2d final richy: 07/04/25, efw: 37% Notes Visit Date: 06/15/25 Last Updated by: Ashely Mueller CNM 06/15: GBS- Visit Date: 06/09/25 Last Updated by: Ashely Mueller CNM sono: 06/07/25: 36w1, EFW: 59% Visit Date: 05/23/25 Last Updated by: Ashely Mueller CNM For BTL, OB: 1hr gTT: 156, 3 hr gtt wnl, hct?31, A+, abs-,rpr;;nr, rub NI, HBSAG-,HIV-,HC-, GC/CT-A!: 4.7 Office Procedures OBC Clinic LOC & Office Proc's Nursing/Assessment Patient Status: Established Patient OB Clinic Nursing Assessment: Medication Reconciliation, Update PMH in EMR and Vital Signs OB Clinic Coordination of Care: Complex Care and Chronic Disease 1-5, Education Complex Pt/Fam, Consent,records obtained, informed consent, Lab and Imaging orders, Results/Orders obtained and Staff clarify orders Special Needs: Heart tones Established Patient Charge Established Patient Point Assignment: 140 Established Patient Point Charge: EP Level 4 (120-155) Assessment & Plan Diagnosis / Problem List (1) Obese: Status: Acute Qualifiers: Obesity type: due to excess calories (2) Advanced maternal age (AMA) in : Status: Acute (3) Encounter for supervision of high risk in third trimester, antepartum: Status: Acute Plan Discussed GBS. Discussed labor precautions. Kick count twice a day. Reviewed danger signs symptoms and ER precautions return in a week OB check Additional Plan Follow Up: 1 Week (obc)
== END 2025-06-15 09:21 | disposition home or self-care (01) ==
LOC: HODSOBC 08:58
PROVIDERS: Supervising Provider Advanced Practice Midwife; Visit Provider Advanced Practice Midwife
DX: O09.523 Supervision of elderly multigravida, third trimester (principal); O09.893 Supervision of other high risk pregnancies, third trimester; O99.213 Obesity complicating pregnancy, third trimester; Z3A.37 37 weeks gestation of pregnancy
CPT/HCPCS: 99214; G0463

== ENCOUNTER 2025-06-26 10:35 | Outpatient (AMB) | payer MEDICAID, SELFPAY ==
[2025-06-26 10:45] VITALS: BP 118/75; PULSE 86; RESP 18; TEMP 36.2; O2SAT 98; BMI 38.5
--- NOTE | 2025-06-26 10:45 | OBCLNT_ITS ---
Vital Signs 06/26/25 10:45 Height 1.6 m Height Method Stated Weight 98.486 kg Weight Measurement Method Standing Scale BMI 38.5 BP 118/75 Blood Pressure Source Automatic Cuff Blood Pressure Location Left Upper Arm Position Sitting Respiration 18 Pulse 86 Pulse Source Monitor Temp 97.2 F Temp Source Oral Pulse Oximetry (%) 98 Oxygen Delivery Method Room Air Allergies/Home Meds Allergies & Medications Allergies No Known Allergies Allergy (Verified 06/26/25 11:23) Medication Reconciliation vit no.95-ferrous fumarate 28 mg-folic acid 800 mcg tablet () 1 tab PO DAILY 10/17/21 [History Confirmed 06/26/25] ferrous sulfate 325 mg (65 mg iron) tablet (FeroSul) 325 mg PO BID 10/27/21 [History Confirmed 06/26/25] Immunizations Immunizations Flu Vaccine in the Last 12 Months: Yes Flu Vaccine Exclusion Criteria: No Exclusion Criteria and Already Received Care OB Visit Log OB Flowsheet Initial Weight: Not Recorded Date -?-?-?-?-?-?-?-?-?-?-?-?- EGA Weight BP Alb Glu CTX Pres Fundal ht FHR Mov Dilation Station Effacement Hx Notes Visit Note 05/23/25 -?-?-?-?-?-?-?-?-?-?-?-?- 34w 0d 97.239 kg 127/82 absent cephalic 34 145 active 35-year-old 10 para 7 for OBI. Transfer of care from [facility]. She has records. Sono's are not in the chart. Her first ultrasound was at 16 weeks January 19, 2025. And this confirmed due date of July 04, 2025 by her LMP of September 27, 2024. Patient has a history of anemia. And she had gastric bypass in 2019. Previous history of hemorrhage with her last . Schedule ultrasound with maternal- medicine for anatomy scan and growth. Continue prenatals. Discussed labor precautions and kick count. And we discussed diet and weight gain and return in 2 weeks for GBS. Patient is for tubal ligation. She has a consent and is a consent in her records 06/01/25 -?-?-?-?-?-?-?-?-?-?-?-?- 35w 2d 97.182 kg 114/75 absent cephalic 35 147 active Reports good movement. Denies leaking, bleeding, contractions. No OB complaints GBS next visit. Kick count twice a day. Reviewed danger signs symptoms labor precautions return in a week OB check 06/09/25 -?-?-?-?-?-?-?-?-?-?-?-?- 36w 3d 98.146 kg 115/75 absent cephalic 36 145 active Reports good movement. Denies leaking, bleeding, contractions GBS GBS today. Discussed labor precautions. Kick count twice a day. Discussed danger signs symptoms ER precautions, and return in a week OB check 06/15/25 -?-?-?-?-?-?-?-?-?-?-?-?- 37w 2d 98.883 kg 111/62 absent cephalic 37 145 active Reports good movement. Denies leaking, bleeding, contractions. Increased discomfort Discussed GBS result. Discussed kick count twice a day. Labor precautions reviewed and danger signs symptoms return a week OB check 06/26/25 -?-?-?-?-?-?-?-?-?-?-?-?- 38w 6d 98.486 kg 118/75 occasional cephalic 38 156 active Reports decreased movement for the last 2 days. Increased pressure. Contractions at night. Denies leaking or bleeding Marivel ent to labor and delivery for NST, BPP and complete reviewed kick count twice a day and parameters. Discussed labor precautions return in a week OB check RICHY Calculator Estimated Delivery Date Method Current WG Current Estimate 07/04/25 LMP (Uncertain) 38w 6d Other Estimates 07/04/25 Ultrasound #1 38w 6d 07/08/25 Ultrasound #2 38w 2d 07/04/25 Manual 38w 6d final richy: , efw: 37% Notes Visit Date: 06/26/25 Last Updated by: Ashely Mueller CNM 06/26: NST reactive 02/03, ALEXYS: 14 Visit Date: 06/15/25 Last Updated by: Ashely Mueller CNM 06/15: GBS- Visit Date: 06/09/25 Last Updated by: Ashely Mueller CNM sono: 06/07/25: 36w1, EFW: 59% Visit Date: 05/23/25 Last Updated by: Ashely Mueller CNM For BTL, OB: 1hr gTT: 156, 3 hr gtt wnl, hct?31, A+, abs- ,rpr;;nr, rub NI, HBSAG-,HIV-,HC-, GC/CT-A!: 4.7 Office Procedures OBC Clinic LOC & Office Proc's Nursing/Assessment Patient Status: Established Patient OB Clinic Nursing Assessment: Medication Reconciliation, Update PMH in EMR and Vital Signs OB Clinic Coordination of Care: Complex Care and Chronic Disease 1-5, Consent,records obtained, informed consent, Education Simp Pt/Fam, Lab and Imaging orders, Results/Orders obtained and Staff clarify orders Special Needs: Heart tones Established Patient Charge Established Patient Point Assignment: 135 Established Patient Point Charge: EP Level 4 (120-155) Assessment & Plan Diagnosis / Problem List (1) Advanced maternal age (AMA) in : Status: Acute (2) Encounter for supervision of high risk in third trimester, antepartum: Status: Acute Plan Patient to labor and delivery for NST BPP and complete OB. Discussed labor precautions. Reports kick count twice a day and parameters. And we talked about labor precautions and return in a week Additional Plan Follow Up: 1 Week (obc)
== END 2025-06-26 11:02 | disposition home or self-care (01) ==
LOC: HODSOBC 10:35
PROVIDERS: Supervising Provider Advanced Practice Midwife; Visit Provider Advanced Practice Midwife
DX: O09.523 Supervision of elderly multigravida, third trimester (principal); O09.893 Supervision of other high risk pregnancies, third trimester; O36.8130 Decreased fetal movements, third trimester, not applicable or unspecified; O09.43 Supervision of pregnancy with grand multiparity, third trimester; Z3A.38 38 weeks gestation of pregnancy
CPT/HCPCS: 99214; G0463

== ENCOUNTER 2025-06-26 11:17 | Outpatient (CLI) | payer MEDICAID, SELFPAY ==
[2025-06-26 11:22] VITALS: BP 119/68; PULSE 76; RESP 17; RESP 98; BMI 38.4
--- NOTE | 2025-06-26 11:23 | XR_ITS ---
Study: Obstetrical ultrasound. INDICATION: Decreased movement for 3 days. TECHNIQUE: Grayscale ultrasound with color flow Doppler transabdominal at 1213 hours 26 June 2025. FINDINGS: There is a nguyen fetus in cephalic presentation with the spine to the maternal left. heart rate of 152/min is noted in the four-chamber heart. The placenta is grade 2 and positioned left laterally. An umbilical cord insert is normally seen. An amniotic fluid index measures 14.5 cm. The kidneys, bladder, stomach and spine are normal in appearance. The cervix was not visualized. The ovaries are obscured by bowel gas. The estimated weight of 3 208 g +/-475 g corresponds with 7 pounds 1.2 ounces. IMPRESSION: Gestational age by ultrasound 38 weeks 0 days composite age with an estimated due date of 10 July 2025.
--- NOTE | 2025-06-26 11:23 | XR_ITS ---
Study: Biophysical profile. INDICATION: Decreased movements for 3 days. TECHNIQUE: Grayscale ultrasound with color flow Doppler at 1201 hours, 26 June 2025. FINDINGS: Scores of 2 are awarded for body movement, breathing motion, tone and qualitative amniotic fluid volume. The amniotic fluid index measures 14.3 cm. The heart rate is 158/min. IMPRESSION: Biophysical profile score 8/8.
[2025-06-26 11:24] VITALS: BP 119/68; PULSE 76; PULSE 81; O2SAT 98
[2025-06-26 11:29] VITALS: PULSE 80; O2SAT 97
[2025-06-26 11:34] VITALS: PULSE 81; O2SAT 97
[2025-06-26 11:39] VITALS: PULSE 78; O2SAT 97
[2025-06-26 11:44] VITALS: PULSE 79; O2SAT 97
== END 2025-06-26 12:43 | disposition home or self-care (01) ==
LOC: S4S1 11:18 → S4SX 11:18
PROVIDERS: Referring Provider Advanced Practice Midwife; Visit Provider Advanced Practice Midwife
DX: O36.8130 Decreased fetal movements, third trimester, not applicable or unspecified (principal); Z3A.38 38 weeks gestation of pregnancy
CPT/HCPCS: 59025; 76805; 76819